=== PATIENT | female | born 1940 | race Caucasian/White ===

== ENCOUNTER 2020-07-27 16:38 | Emergency (ER) | payer MEDICARE, OTHER ==
[2020-07-27 16:49] VITALS: BP 184/76; PULSE 88
--- NOTE | 2020-07-27 17:08 | EDM.PDOC ---
ED HPI GENERAL MEDICAL PROBLEM - General Chief Complaint: Neurological Problem Stated Complaint: DIZZINESS Time Seen by Provider: 07/27/20 17:07 - History of Present Illness INITIAL COMMENTS - FREE TEXT/NARRATIVE: 79-year-old female presents the emergency room with dizziness. Apparently the patient was sent here from [place] after having an evaluation and further testing done. Patient was instructed to come here because she had an abnormality on her head CT. The patient has been having some dizziness that started around 3 AM this morning. Prior to this the patient was doing fine and her last known normal was when she went to bed last night. She got up this morning around 3 AM to go to the bathroom and noticed some dizziness and this really seem to be aggravated by change in position. However the patient was seen in the clinic today by Dr. Londono. He had a CT done reports a basic metabolic panel and a CBC has been normal. And she is treated for hypertension hypercholesterolemia and depression. Apparently the CT showed a lesion concerning for a basal ganglion stroke. She was sent here for further evaluation. The patient's dizziness is aggravated by change of position generally but at times she has a when she is resting. Headache Pain Score (Numeric/FACES): 5 - Related Data Allergies Allergy/AdvReac Type Severity Reaction Status Date / Time No Known Allergies Allergy Verified 07/27/20 16:49 Home Meds: Home Meds Levothyroxine Sodium [Synthroid] 75 mcg PO DAILY 07/31/15 [History] Magnesium 250 mg PO BID 07/31/15 [History] Cholecalciferol (Vitamin D3) [Vitamin D3] 0 unit PO DAILY 07/27/20 [History] Escitalopram [Lexapro] 5 mg PO DAILY 07/27/20 [History] Losartan/Hydrochlorothiazide [Losartan-HCTZ 100-25 MG] 1 each PO DAILY 07/27/20 [History] Mv-Min/Iron/Folic/Calcium/Vitk [Women's Daily Formula Tablet] 1 each PO DAILY 07/27/20 [History] Rosuvastatin [Crestor] 20 mg PO DAILY 07/27/20 [History] amLODIPine [Norvasc] 5 mg PO DAILY 07/27/20 [History] Past Medical History Cardiovascular History: Reports: High Cholesterol, Hypertension [employer]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: Musculoskeletal History: Reports: Arthritis Psychiatric History: Reports: Depression Endocrine/Metabolic History: Reports: Hypothyroidism Social & Family History - Tobacco Use Tobacco Use Status *Q: Never Tobacco User - Caffeine Use Caffeine Use: Reports: Coffee - Recreational Drug Use Recreational Drug Use: No ED ROS GENERAL - Review of Systems Review Of Systems: See Below Constitutional: Denies: Fever, Chills, Weakness, Fatigue HEENT: Reports: Vertigo (She is having some dizziness this started at 3 AM this morning) Respiratory: Reports: No Symptoms Cardiovascular: Reports: No Symptoms Endocrine: Reports: No Symptoms GI/Abdominal: Reports: No Symptoms : Reports: No Symptoms Musculoskeletal: Reports: No Symptoms Skin: Reports: No Symptoms Neurological: Reports: Dizziness. Denies: Headache, Trouble Speaking, Difficulty Walking, Weakness, Change in Speech, Gait Disturbance Psychiatric: Reports: No Symptoms ED EXAM, GENERAL - Physical Exam Exam: See Below Exam Limited By: No Limitations General Appearance: Alert, No Apparent Distress Eye Exam: Bilateral Eye: EOMI, Normal Inspection, PERRL Ears: Normal External Exam, Normal Canal, Hearing Grossly Normal, Normal TMs Nose: Normal Inspection, Normal Mucosa, No Blood Throat/Mouth: Normal Inspection, Normal Lips, Normal Gums, Normal Oropharynx, Normal Voice, No Airway Compromise Head: Atraumatic, Normocephalic Neck: Normal Inspection, Supple, Non-Tender, Full Range of Motion. No: Carotid Bruit, Lymphadenopathy (L), Lymphadenopathy (R) Respiratory/Chest: No Respiratory Distress, Lungs Clear, Normal Breath Sounds Cardiovascular: Regular Rate, Rhythm, No Edema, No Murmur GI/Abdominal: Normal Bowel Sounds, Soft, Non-Tender Back Exam: Normal Inspection. No: CVA Tenderness (L), CVA Tenderness (R) Extremities: Normal Inspection, No Pedal Edema Neurological: Alert, Oriented, Normal Cognition. No: Sensory/Motor Deficit Skin Exam: Warm, Dry, Intact Lymphatic: No Adenopathy #1 Interpretation EKG Date: 07/27/20 Rhythm: NSR [place]: LAD-Left [place] Deviation P-Wave: Present QRS: Other (Mild intraventricular conduction delay) ST-T: Other (Nondiagnostic ST depression V3 through V6) QT: Normal Comparison: NA - No Prior EKG EKG Interpretation Comments: Abnormal EKG Course - Vital Signs Last Recorded V/S: Last Vital Signs Temp 36.2 C 07/27/20 16:45 Pulse 88 07/27/20 16:45 Resp 16 07/27/20 16:45 BP 184/76 H 07/27/20 16:45 Pulse Ox 97 07/27/20 16:45 - Orders/Labs/Meds Orders: Active Orders 24 hr Category Date Time Status EKG Documentation Completion [RC] STAT Care 07/27/20 17:29 Active CORONAVIRUS COVID-19 MIRIAM [[facility]LEC] Stat Lab 07/27/20 19:09 Received Labs: Laboratory Tests 07/27/20 07/27/20 Range/Units 16:49 16:49 PT 10.3 (9.7-12.0) SECONDS INR 0.96 APTT 22.8 (21.7-31.4) SECONDS Troponin I < 0.017 (0.00-0.056) ng/mL - Re-Assessments/Exams Free Text/Narrative Re-Assessment/Exam: 07/27/20 17:39 I am waiting on labs from [place] and her CT report. 07/27/20 18:38 I did receive all the information from [place] the CT is concerning for edema of the right basal ganglia extending into the centrum semiovale thought to represent a age-indeterminate infarct no significant mass-effect noted. At this time I am waiting to hear back from 1 call at [place] about transferring the patient for MRI and further evaluation. 07/27/20 19:32 Case was discussed with , neurologist on-call at [place] in [place] who agrees the patient should come over. And we were directed over to the hospitalist service. Dr. Brown kindly accept the patient in transfer. For further evaluation. 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 - Discharge Information Referrals: Rayne Taylor, [employer]ICIAN [Primary Care Provider] - Forms: ED Department Discharge Sepsis Event Note (ED) - Evaluation Sepsis Screening Result: No Definite Risk - Focused Exam Vital Signs: Vital Signs Temp Pulse Resp BP Pulse Ox 07/27/20 16:45 36.2 C 88 16 184/76 H 97 - My Orders Last 24 Hours: My Active Orders 07/27/20 17:29 EKG Documentation Completion [RC] STAT 07/27/20 19:09 CORONAVIRUS COVID-19 MIRIAM [MOLEC] Stat - Assessment/Plan Last 24 Hours: My Active Orders 07/27/20 17:29 EKG Documentation Completion [RC] STAT 07/27/20 19:09 CORONAVIRUS COVID-19 MIRIAM [MOLEC] Stat
[2020-07-27] MEDS ORDERED: Acetaminophen 325 MG Tab PO ONE (22:11)
== END 2020-07-27 22:35 ==
LOC: JD.ED 16:38
DX: I63.9 Cerebral infarction, unspecified (principal); E78.00 Pure hypercholesterolemia, unspecified; I10 Essential (primary) hypertension; E03.9 Hypothyroidism, unspecified; Z79.899 Other long term (current) drug therapy; Z20.822 Contact with and (suspected) exposure to COVID-19
CPT/HCPCS: 36415; 84484; 85610; 85730; 93005; 99285; A9270; U0002; 93010

== ENCOUNTER 2020-08-01 16:17 | Emergency (ER) | payer MEDICARE, OTHER ==
[2020-08-01 16:40] VITALS: BP 192/69; PULSE 78
--- NOTE | 2020-08-01 17:35 | EDM.PDOC ---
ED HPI GENERAL MEDICAL PROBLEM - General Chief Complaint: Cardiovascular Problem Stated Complaint: HIGH BP Time Seen by Provider: 08/01/20 16:30 Source of Information: Reports: Patient, Family, RN Notes Reviewed History Limitations: Reports: No Limitations - History of Present Illness INITIAL COMMENTS - FREE TEXT/NARRATIVE: Patient is an 80-year-old female presenting to the emergency department for evaluation with regards to elevated blood pressure. She reports that her blood pressures are normally in the 130s systolically, however she had an appointment with her primary care provider today for a follow-up after her admission for CVA. In the clinic her blood pressure was found to be 152 systolically. Provider had her go home and take her as needed hydralazine which she did around 1400. She comes to ER reporting that her blood pressure is still elevated. Reports at home her blood pressure was in the 150s. Initial blood pressure on triage was elevated at 192/69. She denies any headache, vision changes, chest pain or any other concerning symptoms. States that aside from the elevated blood pressure she feels good. - Related Data Allergies Allergy/AdvReac Type Severity Reaction Status Date / Time tramadol Allergy Cannot Verified 08/01/20 16:37 Remember Home Meds: Home Meds Levothyroxine Sodium [Synthroid] 75 mcg PO DAILY 07/31/15 [History] Magnesium 400 mg PO BID 07/31/15 [History] Losartan/Hydrochlorothiazide [Losartan-HCTZ 100-25 MG] 100 mg PO DAILY 07/27/20 [History] Mv-Min/Iron/Folic/Calcium/Vitk [Women's Daily Formula Tablet] 1 each PO DAILY 07/27/20 [History] Rosuvastatin [Crestor] 20 mg PO DAILY 07/27/20 [History] amLODIPine [Norvasc] 10 mg PO DAILY 07/27/20 [History] Past Medical History HEENT History: Reports: Impaired Vision Cardiovascular History: Reports: High Cholesterol, Hypertension Respiratory History: Reports: None Gastrointestinal History: Reports: None Genitourinary History: Reports: None 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: Musculoskeletal History: Reports: Arthritis Neurological History: Reports: CVA Psychiatric History: Reports: Depression Endocrine/Metabolic History: Reports: Hypothyroidism Hematologic History: Reports: None Immunologic History: Reports: None Oncologic (Cancer) History: Reports: None Dermatologic History: Reports: None - Infectious Disease History Infectious Disease History: Reports: Chicken Pox, Measles - Past Surgical History Head Surgeries/Procedures: Reports: None HEENT Surgical History: Reports: Oral Surgery Social & Family History - Family History Family Medical History: No Pertinent Family History - Tobacco Use Tobacco Use Status *Q: Never Tobacco User - Caffeine Use Caffeine Use: Reports: Coffee - Recreational Drug Use Recreational Drug Use: No ED ROS GENERAL - Review of Systems Review Of Systems: Comprehensive ROS is negative, except as noted in HPI. ED EXAM, GENERAL - Physical Exam Exam: See Below Exam Limited By: No Limitations General Appearance: Alert, WD/WN, No Apparent Distress Respiratory/Chest: No Respiratory Distress, Lungs Clear, Normal Breath Sounds, No Accessory Muscle Use, Chest Non-Tender Cardiovascular: Normal Peripheral Pulses, Regular Rate, Rhythm, No Edema, No Gallop, No JVD, No Murmur, No Rub Neurological: Alert, Oriented, CN II-XII Intact, Normal Cognition, Normal Gait, Normal Reflexes, No Motor/Sensory Deficits Psychiatric: Normal Affect, Normal Mood Skin Exam: Warm, Dry, Intact, Normal Color, No Rash Course - Vital Signs Last Recorded V/S: Last Vital Signs Temp 96.7 F L 08/01/20 16:39 Pulse 78 08/01/20 16:39 Resp 12 08/01/20 16:39 BP 192/69 H 08/01/20 16:39 Pulse Ox 99 08/01/20 16:39 - Re-Assessments/Exams Free Text/Narrative Re-Assessment/Exam: Patient is an 80-year-old female presenting to the emergency department for evaluation with regards to elevated blood pressure. She reports she was seen in the clinic today for a hospital follow-up and her blood pressure was found to be 152/64. She went home and took her hydralazine and states that the blood pressure did not come down, therefore she presented to the ER. She has no abnormal symptoms including headache, vision changes, dizziness, or chest pain. Initial blood pressure in triage was elevated at 192/69, however recheck after 15 minutes had come down to 172/68. She reports that this morning her blood pressure was normal in the 130s systolically and a has not been every other day since her discharge from the hospital. I suspect her elevated blood pressures are related to the anxiety of doctors appointments today. We will watch her blood pressures to see if they come down further. 08/01/20 17:38 Blood pressure has come down to 161/66 without intervention. Discussed with patient that I would not recommend adjusting her blood pressure medications based on these readings at this time. I would like her to go home and rest. Discussed that she should only take her blood pressure once or twice daily under restful conditions. Keep a log of these readings and follow-up with her primary care provider. Discussed return precautions. Discharge instructions as documented. Departure - Departure Time of Disposition: 17:27 Disposition: Home, Self-Care 01 Condition: Good Clinical Impression: Elevated blood pressure reading in office with diagnosis of hypertension Referrals: Rayne Taylor NP [Primary Care Provider] - Forms: ED Department Discharge Additional Instructions: You were seen in the emergency department today for evaluation with regards to elevated blood pressure. On arrival to ER, your blood pressure was initially elevated, however did come down to 161/66. While this is still slightly elevated, it is not emergently high. Given that your blood pressures have been normal every other day, your elevated blood pressures today were likely related to anxiety related to your doctor's appointment. Having a slightly elevated blood pressure reading in the clinic likely caused further anxiety, thus further increasing your blood pressure. The more anxiety you have, the higher your blood pressure will go. Recommend that you go home and rest. Only check your blood pressure once or twice daily under restful conditions and keep a log of your blood pressure readings. Follow-up with your primary care provider as scheduled, or sooner if needed. If you should experience any new or worsening symptoms of concern, please not hesitate to return to the emergency department for reevaluation. Sepsis Event Note (ED) - Evaluation Sepsis Screening Result: No Definite Risk - Focused Exam Vital Signs: Vital Signs Temp Pulse Resp BP Pulse Ox 08/01/20 16:39 96.7 F L 78 12 192/69 H 99
== END 2020-08-01 17:45 | disposition home or self-care (01) ==
LOC: JD.ED 16:17
DX: I10 Essential (primary) hypertension (principal); E78.00 Pure hypercholesterolemia, unspecified; E03.9 Hypothyroidism, unspecified; Z88.5 Allergy status to narcotic agent; Z79.899 Other long term (current) drug therapy
CPT/HCPCS: 99282; 99283

== ENCOUNTER 2022-09-24 09:19 | Emergency (ER) | payer MEDICARE, OTHER ==
[2022-09-24] MEDS ORDERED: Meclizine 25 MG Tab PO ONE (09:32)
[2022-09-24 09:42] LABS: BASOPHILS ABSOLUTE AUTO 0.04 K/mm3 (0.01-0.08); BASOPHILS PERCENT AUTO 0.3 % (0.1-1.2); EOSINOPHILS ABSOLUTE AUTO 0.23 K/mm3 (0.04-0.36); EOSINOPHILS PERCENT AUTO 1.9 (0.7-5.8); HEMATOCRIT 37.1 % (34.1-44.9); IMMATURE GRAN ABSOLUTE AUTO 0.04 K/mm3 (0.00-0.10); IMMATURE GRAN PERCENT AUTO 0.3 % (<=1.0); LYMPHOCYTES PERCENT AUTO 29.9 % (19.3-51.7); MEAN CORPUSCULAR HEMOGLOBIN 29.3 pg (25.6-32.2); MEAN CORPUSCULAR HGB CONC 32.3 g/dl (32.2-35.5); MEAN CORPUSCULAR VOLUME 90.5 fl (79.4-94.8); MONOCYTES ABSOLUTE AUTO 0.96 K/mm3 (0.24-0.36); NEUTROPHILS ABSOLUTE AUTO 7.17 K/mm3 (1.56-6.13); NEUTROPHILS PERCENT AUTO 59.6 % (34.0-71.1); PLATELET COUNT,PLT 268 K/mm3 (182-369); WHITE BLOOD CELL COUNT,WBC 12.04 K/mm3 (3.98-10.04)
[2022-09-24 10:01] LABS: PROTHROMBIN TIME 9.9 SECONDS (9.7-12.0)
[2022-09-24 10:02] LABS: PTT,PARTIAL THROMBOPLSTIN TIME 22.8 SECONDS (21.7-31.4)
[2022-09-24 10:07] LABS: ALBUMIN 3.7 g/dl (3.4-5.0); ANION GAP 15.6 (5-15); BILIRUBIN TOTAL 0.7 mg/dL (0.2-1.0); CALCIUM 9.3 mg/dL (8.5-10.1); CREATININE 1.1 mg/dL (0.55-1.02); EST CRCL DRUG DOSING (CG) 32.06 mL/min; POTASSIUM,K 3.6 mEq/L (3.5-5.1); PROTEIN TOTAL,TP 7.5 g/dl (6.4-8.2)
[2022-09-24 10:14] LABS: INR < 0.93
[2022-09-24 11:07] LABS: APPEARANCE,URINE CLEAR (Clear); BILIRUBIN,URINE NEGATIVE (Negative); COLOR,URINE LIGHT YELLOW (Yellow); GLUCOSE,URINE NEGATIVE (Negative); KETONES,URINE NEGATIVE (Negative); LEUKOCYTE ESTERASE,URINE 1+ (Negative); NITRITE,URINE POSITIVE (Negative); OCCULT BLOOD,URINE NEGATIVE (Negative); PH,URINE 6.5 (5.0-8.0); PROTEIN,URINE NEGATIVE (Negative); UROBILINOGEN,URINE 0.2 (0.2-1.0)
[2022-09-24 11:30] LABS: BACTERIA,URINE MANY /hpf (FEW); EPITHELIAL CELLS,URINE 0-5 /hpf (0-5); MUCUS,URINE FEW /hpf (FEW); RBC,URINE 0-5 /hpf (0-5)
[2022-09-24] MEDS ORDERED: Acetaminophen 325 MG Tab PO ONE (11:30)
[2022-09-24 13:21] VITALS: BP 138/52; PULSE 78
== END 2022-09-24 12:00 | disposition home or self-care (01) ==
LOC: JD.ED 09:19
DX: N30.00 Acute cystitis without hematuria (principal); R42 Dizziness and giddiness; E78.00 Pure hypercholesterolemia, unspecified; I10 Essential (primary) hypertension; E03.9 Hypothyroidism, unspecified; Z88.5 Allergy status to narcotic agent; Z79.899 Other long term (current) drug therapy
CPT/HCPCS: 36415; 70450; 80053; 81001; 82947; 84484; 85025; 85610; 85730; 93005; 99284; A9270; 93010

== ENCOUNTER 2024-07-14 07:25 | Day surgery (SDC) | payer MEDICARE, OTHER ==
[~2024-07-14 07:25] MED LIST: Lactated Ringers 1,000 ML IV SCH; Sodium Chloride 0.9% 10 ML Syringe FLUSH PRN; Sodium Chloride 0.9% 10 ML Syringe FLUSH SCH
[2024-07-14] MEDS: Lidocaine 1% 10 ML MDV ONE (08:31)
[2024-07-14] MEDS: Bupivacaine 0.25% 10 ML SDV ONE (08:31)
[2024-07-14 08:48] VITALS: BP 133/63; PULSE 77
== END 2024-07-14 09:05 | disposition home or self-care (01) ==
LOC: JD.SDS 07:25
PROVIDERS: ATTEND Orthopaedic Surgery
DX: M65.841 Other synovitis and tenosynovitis, right hand (principal); M65.341 Trigger finger, right ring finger; I10 Essential (primary) hypertension; E03.9 Hypothyroidism, unspecified; E78.5 Hyperlipidemia, unspecified; Z79.890 Hormone replacement therapy; Z79.899 Other long term (current) drug therapy; Z88.8 Allergy status to other drugs, medicaments and biological substances
CPT/HCPCS: 26055; J0665; J2003